=== PATIENT | female | born 1960 | race Caucasian/White ===

== ENCOUNTER 2016-10-30 17:49 | Emergency (ER) | payer OTHER ==
[~2016-10-30] VITALS: Ht 157.5 cm; Wt 65.0 kg
[2016-10-30 17:52] VITALS: Ht 157.5 cm; Wt 65.0 kg
[2016-10-30] MEDS ORDERED: KETOROLAC 30 MG INJ IM STA (18:52)
--- NOTE | 2016-10-30 19:14 | ERD ---
ER Documentation Chief Complaint Date/Time DATE: 10/30/16 TIME: 19:08 Chief Complaint LEFT SHOULDER PAIN X 1 WEEK HPI 56-year-old female presents to the emergency department complaining of gradually worsening severe left shoulder pain which began 1 week ago. Patient states that she was controlling the pain adequately with Tylenol until yesterday when it worsened to a sharp 10 out of 10. Patient states that her family member offered her meloxicam and after administering that medication, patient states her symptoms significantly improved. 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 Patient is left-hand dominant. Patient denies any medical history including diabetes, kidney disease, or high blood pressure. Patient denies any fever, chills, redness, or swelling of the joint. Patient denies any recent illness peer ROS All systems reviewed and are negative except as per history of present illness. Medications Home Meds Active Scripts Meloxicam* (Mobic*) 15 Mg Tablet, 15 MG PO DAILY, #30 TAB Prov:WERO OROZCO PA-C 10/30/16 Prednisone* (Prednisone*) 20 Mg Tab, 40 MG PO DAILY for 4 Days, TAB Prov:WERO OROZCO PA-C 10/30/16 PMhx/Soc Medical and Surgical Hx: pt denies Medical Hx, pt denies Surgical Hx Hx Alcohol Use: No Hx Substance Use: No Hx Tobacco Use: No Smoking Status: Never smoker Physical Exam Vitals Vital Signs Date Time Temp Pulse Resp B/P Pulse Ox O2 Delivery O2 Flow Rate FiO2 10/30/16 17:52 98.1 89 20 140/78 99 Physical Exam Const: Well-developed, well-nourished, in mild distress Head: Atraumatic Eyes: Normal Conjunctiva ENT: Normal External Ears, Nose and Mouth. Neck: Full range of motion at cervical spine. No midline cervical spine tenderness to Resp: Clear to auscultation bilaterally Cardio: Regular rate and rhythm, no murmurs Abd: Soft, non tender, non distended. Normal bowel sounds Skin: No petechiae or rashes Back: No midline or flank tenderness Ext: No evidence of erythema, cellulitis or major swelling surrounding the left shoulder joint. Mild tenderness to palpation. limited active and passive range of motion at left shoulder joint due to pain. Patient guarding left upper extremity. Full active range of motion at elbow and wrist joint. Radial , median, ulnar nerve motor and sensory function intact for bilateral upper extremities. 2+ radial pulses equal bilateral. 2 point discrimination intact along radial and ulnar aspects of all 5 fingers of left upper extremity. No cyanosis, or edema Neur: Awake and alert Psych: Normal Mood and Affect Results 24 hrs Current Medications Medications (Trade) Dose Ordered Sig/Ludwig Route PRN Reason Start Time Stop Time Status Last Admin Dose Admin Ketorolac Tromethamine (Toradol) 30 mg ONCE STAT IM 10/30/16 18:52 10/30/16 18:54 DC 10/30/16 18:56 Procedures/MDM PROCEDURE: XR left Shoulder. CLINICAL INDICATION: Left shoulder pain TECHNIQUE: 2 views of the left shoulder are available for review. COMPARISON: None available FINDINGS: No definite acute fracture is seen on this two-view radiograph. Limited assessment for dislocation given the provided views but no definite dislocation is seen. The greater tuberosity is also not well assessed. There is a 4 mm rounded density along the proximal humeral shaft that may be in the extraarticular biceps tendon sheath. IMPRESSION: 1. No radiographic evidence of acute osseous abnormality though the lack of an external rotation radiographs limits assessment of the greater tuberosity. 2. 4 mm rounded density projecting over the margin of the proximal humeral shaft may represent calcium hydroxyapatite deposition or a body in the biceps tendon sheath. RPTAT: UU .Deshawn Dominguez MD, Date Time Electronically viewed and signed by .Deshawn Dominguez MD, on 10/30/2016 19: 58 .K/ CC: WERO OROZCO-Ade X-ray Shoulder 3V Interpreted by me: Bones: No fracture Joints: No dislocation Foreign body: None She received Toradol in the emergency department and reports improvement of pain symptoms. 56-year-old female presents to the emergency department complaining of gradually worsening shoulder pain 1 week. Patient denies any trauma or injury. Patient states that at home her pain was significantly improved with meloxicam. Patient denies any fever, chills, or recent illness. At this time I have low suspicion for acute fracture, dislocation, septic joint, or serious systemic illness. Patient will be supplied with anti-inflammatory medication and sling for comfort. Patient to follow-up with supervisory it specialist within 10 days if symptoms worsen or do not improve. Based on patient's history of present illness and physical examination the decision was made to discharge. The patient was re-evaluated after ED treatment and stabilizing measures, and symptoms have improved. There is no evidence of life threatening injuries or illnesses at this time. On re-examination, patient resting in no distress, stable vital signs, reports feeling better and safe for discharge with outpatient follow up with PMD in 1-2 days. Patient given return precautions. Departure Diagnosis: Primary Impression: Shoulder pain Laterality: left Chronicity: acute Qualified Code: M25.512 - Acute pain of left shoulder Additional Impression: Left shoulder strain Encounter type: initial encounter Qualified Code: S46.912A - Left shoulder strain, initial encounter WERO OROZCO PA-C Oct 30, 2016 19:14
[2016-10-30] MEDS ORDERED: PRED20TA PO (19:17)
[2016-10-30] MEDS ORDERED: MELO-110 PO (19:17)
--- NOTE | 2016-10-30 19:58 | RADRPT ---
PROCEDURE: XR left Shoulder. CLINICAL INDICATION: Left shoulder pain TECHNIQUE: 2 views of the left shoulder are available for review. COMPARISON: None available FINDINGS: No definite acute fracture is seen on this two-view radiograph. Limited assessment for dislocation given the provided views but no definite dislocation is seen. The greater tuberosity is also not well assessed. There is a 4 mm rounded density along the proxim al humeral shaft that may be in the extraarticular biceps tendon sheath. IMPRESSION: 1. No radiographic evidence of acute osseous abnormality though the lack of an external rotation ra diographs limits assessment of the greater tuberosity. 2. 4 mm rounded density projecting over the margin of the proximal humeral shaft may represent calc ium hydroxyapatite deposition or a body in the biceps tendon sheath. RPTAT: UU .Deshawn Dominguez MD, Date Time Electronically viewed and signed by .Deshawn Dominguez MD, on 10/30/2016 19:58 .K/
== END 2016-10-30 20:23 | disposition home or self-care (01) ==
LOC: FTE 17:49
DX: S46.912A Strain of unspecified muscle, fascia and tendon at shoulder and upper arm level, left arm, initial encounter (principal); X58.XXXA Exposure to other specified factors, initial encounter; Y92.89 Other specified places as the place of occurrence of the external cause
CPT/HCPCS: 73030; 96372; J1885; Z7502

== ENCOUNTER 2019-02-22 08:27 | Emergency (ER) | payer OTHER ==
[~2019-02-22] VITALS: Wt 63.6 kg
[~2019-02-22 08:27] MED LIST: AMOX1TAB9 PO; CETI10TA34 PO; FLUT9.9S NASAL; MELO15TA30 PO; PRED20TA PO
[2019-02-22 08:38] VITALS: BP 130/93; PULSE 85; RESP 20
[2019-02-22] MEDS ORDERED: POLY10DR19 BOTH EYES (09:03)
--- NOTE | 2019-02-22 09:38 | ERD ---
ER Documentation Chief Complaint Chief Complaint itchy eyes w burning x1 wk HPI 58-year-old female presents with complaint of bilateral itching and burning for the past week. In addition states been having some discharge from both eyes as well. Patient states that her eyes been red. Patient is tried [id number] antihistamine drops but has not helped. Denies any trauma to her eyes. Patient denies any vision problems, eye pain, fevers, chills. ROS All systems reviewed and are negative except as per history of present illness. Medications Home Meds Active Scripts Polymyxin B Sulfate-TMP* (Polymyxin B-TMP Eye Drops*) 10 Ml Drops, 1 DROP BOTH EYES QID for 7 Days, EA Prov:MEGHANA AMIN 02/22/19 Cetirizine Hcl* (Cetirizine Hcl*) 10 Mg Tab.chew, 10 MG PO DAILY, #30 TAB Prov:GRETA CONNORS PA-C 10/03/17 Fluticasone Propionate (Flonase Allergy Relief) 9.9 Ml [place].susp, 1 SPRAY NASAL BID for 14 Days, #1 BOTTLE TO EACH NOSTRIL Prov:GRETA CONNORS PA-C 10/03/17 Amoxicillin/Potassium Clav (Amox-Clav 500-125 mg Tablet) 500-125 mg Tab, 1 TAB PO BID for 10 Days, TAB Prov:GRETA CONNORS PA-C 10/03/17 Meloxicam* (Mobic*) 15 Mg Tablet, 15 MG PO DAILY, #30 TAB Prov:WERO OROZCO PA-C 10/30/16 Prednisone* (Prednisone*) 20 Mg Tab, 40 MG PO DAILY for 4 Days, TAB Prov:WERO OROZCO PA-C 10/30/16 Allergies Allergies: Coded Allergies: No Known Allergy (Unverified , 10/03/17) PMhx/Soc Medical and Surgical Hx: pt denies Medical Hx, pt denies Surgical Hx Hx Cardiac Disorders: Yes ("SOMETIMES HIGH BLOOD PRESSURE") Hx Alcohol Use: No Hx Substance Use: No Hx Tobacco Use: No Smoking Status: Never smoker FmHx Family History: No diabetes, No coronary disease, No other Physical Exam Vitals Vital Signs Date Temp Pulse Resp B/P (MAP) Pulse Ox O2 O2 Flow FiO2 Time Delivery Rate 02/22/19 98.0 85 20 130/93 100 08:38 (105) Physical Exam Const: No acute distress Head: Atraumatic Eyes: Sclerae injected bilaterally. There are no foreign bodies or signs of trauma noted. No discharge noted. EOMs intact. PERRLA. ENT: Normal External Ears, Nose and Mouth. Neck: Full range of motion. No meningismus. Resp: Clear to auscultation bilaterally Cardio: Regular rate and rhythm, no murmurs Abd: Soft, non tender, non distended. Normal bowel sounds Skin: No petechiae or rashes Back: No midline or flank tenderness Ext: No cyanosis, or edema Neur: Awake and alert Psych: Normal Mood and Affect Procedures/MDM MDM: Patient exam is within normal limits. Patient's presentations consistent with conjunctivitis. Patient was placed on Polytrim to treat possible bacterial etiology, however unlikely. Low suspicion bacterial conjunctivitis, corneal abrasion, corneal ulcer, retained eye foreign body, glaucoma, periorbital cellulitis, orbital cellulitis, hordeolum, dacrocystitis, globe rupture. At this time, patient is stable for discharge and outpatient management. I have instructed the patient to follow-up with his/her primary care physician in 1-2 days. I have discussed with the patient the possibility of needing to see a specialist for further workup and imaging studies if symptoms persist. I have instructed the patient to promptly return to the ER for any new or worsening symptoms including but not limited to increased pain, fever, nausea, vomiting, weakness or LOC. The patient and/or family expressed understanding of and agreement with this plan. All questions were answered. Home care instructions were provided. Conjunctivitis, most likely viral DISCLAIMER: Inadvertent spelling and grammatical errors are likely due to EHR/dictation software use and do not reflect on the overall quality of patient care. Also, please note that the electronic time recorded on this note does not necessarily reflect the actual time of the patient encounter. Departure Diagnosis: Primary Impression: Conjunctivitis Condition: Stable Patient Instructions: Conjunctivitis Caused by Infection Referrals: COMMUNITY CLINICS YOU HAVE RECEIVED A MEDICAL SCREENING EXAM AND THE RESULTS INDICATE THAT YOU DO NOT HAVE A CONDITION THAT REQUIRES URGENT TREATMENT IN THE EMERGENCY DEPARTMENT. FURTHER EVALUATION AND TREATMENT OF YOUR CONDITION CAN WAIT UNTIL YOU ARE SEEN IN YOUR DOCTORS OFFICE WITHIN THE NEXT 1-2 DAYS. IT IS YOUR RESPONSIBILITY TO MAKE AN APPOINTMENT FOR FOLOW-UP CARE. IF YOU HAVE A PRIMARY DOCTOR --you should call your primary doctor and schedule an appointment IF YOU DO NOT HAVE A PRIMARY DOCTOR YOU CAN CALL OUR PHYSICIAN REFERRAL HOTLINE AT IF YOU CAN NOT AFFORD TO SEE A PHYSICIAN YOU CAN CHOSE FROM THE FOLLOWING [facility] [address] [facility] [address] [facility] [facility] [address] [facility] [address] [facility]. [place] [address] [facility]. [facility] [address] Additional Instructions: FOLLOW UP WITH YOUR PRIMARY CARE PHYSICIAN TOMORROW.Return to this facility if you are not improving as expected. MEGHANA AMIN Feb 22, 2019 09:38
== END 2019-02-22 09:33 | disposition home or self-care (01) ==
LOC: FTE 08:27
DX: H10.9 Unspecified conjunctivitis (principal)
CPT/HCPCS: 99283

== ENCOUNTER 2019-02-27 21:06 | Emergency (ER) | payer OTHER ==
[~2019-02-27] VITALS: Ht 162.6 cm; Wt 59.7 kg
[~2019-02-27 21:06] MED LIST changes: +POLY10DR19 BOTH EYES
[2019-02-27 21:22] VITALS: BP 159/70; PULSE 84; RESP 18; Ht 162.6 cm; Wt 59.7 kg
[2019-02-27] MEDS ORDERED: KETO5DRO71 OP (22:51)
--- NOTE | 2019-03-01 01:47 | ERD ---
ER Documentation Chief Complaint Chief Complaint bilateral eye redness/itch x 4 days HPI 58-year-old female presents to the emergency department complaining of bilateral eye itching and burning for the past 4 days. Patient was seen here approximately 2 days ago and was prescribed Polytrim for possible bacterial con junctivitis. She is been compliant with the medication but has noticed no improvement of her symptoms. She denies any foreign body sensation or possibility of foreign body in her eyes. She does not wear contacts or glasses. She denies any visual changes, diplopia, severe eye pain, or other symptoms at this time. Symptoms are currently mild in severity. ROS All systems reviewed and are negative except as per history of present illness. Medications Home Meds Active Scripts Ketotifen Fumarate (ZADITOR) 5 Ml Drops, 5 ML OP BID, #1 BOTTLE Prov:MEGHANA ZHOU PA-C 02/27/19 Polymyxin B Sulfate-TMP* (Polymyxin B-TMP Eye Drops*) 10 Ml Drops, 1 DROP BOTH EYES QID for 7 Days, EA Prov:MEGHANA AMIN 02/22/19 Cetirizine Hcl* (Cetirizine Hcl*) 10 Mg Tab.chew, 10 MG PO DAILY, #30 TAB Prov:GRETA CONNORS PA-C 10/03/17 Fluticasone Propionate (Flonase Allergy Relief) 9.9 Ml [place].susp, 1 SPRAY NASAL BID for 14 Days, #1 BOTTLE TO EACH NOSTRIL Prov:GRETA CONNORS PA-C 10/03/17 Amoxicillin/Potassium Clav (Amox-Clav 500-125 mg Tablet) 500-125 mg Tab, 1 TAB PO BID for 10 Days, TAB Prov:GRETA CONNORS PA-C 10/03/17 Meloxicam* (Mobic*) 15 Mg Tablet, 15 MG PO DAILY, #30 TAB Prov:WERO OROZCO PA-C 10/30/16 Prednisone* (Prednisone*) 20 Mg Tab, 40 MG PO DAILY for 4 Days, TAB Prov:WERO OROZCO PA-C 10/30/16 Allergies Allergies: Coded Allergies: No Known Allergy (Unverified , 10/03/17) PMhx/Soc Medical and Surgical Hx: pt denies Surgical Hx Hx Cardiac Disorders: Yes ("SOMETIMES HIGH BLOOD PRESSURE") Hx Alcohol Use: No Hx Substance Use: No Hx Tobacco Use: No Smoking Status: Never smoker FmHx Family History: No diabetes Physical Exam Vitals Vital Signs Date Temp Pulse Resp B/P (MAP) Pulse Ox O2 O2 Flow FiO2 Time Delivery Rate 02/27/19 97.3 84 18 159/70 99 21:22 (99) Physical Exam Const: No acute distress Head: Atraumatic Eyes: Bilateral conjunctival injection. No obvious foreign body. No obvious visual acuity deficits. No periorbital edema or erythema or crepitus on palpation. ENT: Normal External Ears, Nose and Mouth. Neck: Full range of motion. No meningismus. Resp: Clear to auscultation bilaterally Cardio: Regular rate and rhythm, no murmurs Skin: No petechiae or rashes Back: No midline or flank tenderness Ext: No cyanosis, or edema Neur: Awake and alert Psych: Normal Mood and Affect Procedures/MDM 58-year-old female presented to the emergency department with signs and symptoms most consistent with conjunctivitis, probable allergic etiology. Ophthalmologic Assessment: Patient's ocular symptoms have stabilized while they have been evaluated in the department and are appropriate for outpatient work up. No evidence of ruptured globe, retinal detachment, acute angle closure glaucoma, or deep space infection. Plan for 24 hour ophthalmologic follow up. Departure Diagnosis: Primary Impression: Conjunctivitis Condition: Fair Patient Instructions: Conjunctivitis Caused by Irritation Referrals: COMMUNITY CLINICS YOU HAVE RECEIVED A MEDICAL SCREENING EXAM AND THE RESULTS INDICATE THAT YOU DO NOT HAVE A CONDITION THAT REQUIRES URGENT TREATMENT IN THE EMERGENCY DEPARTMENT. FURTHER EVALUATION AND TREATMENT OF YOUR CONDITION CAN WAIT UNTIL YOU ARE SEEN IN YOUR DOCTORS OFFICE WITHIN THE NEXT 1-2 DAYS. IT IS YOUR RESPONSIBILITY TO MAKE AN APPOINTMENT FOR FOL-UP CARE. IF YOU HAVE A PRIMARY DOCTOR --you should call your primary doctor and schedule an appointment IF YOU DO NOT HAVE A PRIMARY DOCTOR YOU CAN CALL OUR PHYSICIAN REFERRAL HOTLINE AT IF YOU CAN NOT AFFORD TO SEE A PHYSICIAN YOU CAN CHOSE FROM THE FOLLOWING [facility] [address] [facility] [address] [facility]. [facility] [address] [facility] [address] [facility]. [facility] [address] [facility] [facility]. [address] [facility]. [facility] Hours: Mon - Fri 9:00 AM - 5:00 PM Additional Instructions: SPECIALIST: YOU HAVE A MEDICAL CONDITION WHICH REQUIRES YOU TO SEE A SPECIALIST WITHIN THE NEXT 1-2 DAYS. PLEASE FOLLOW UP WITH YOUR PRIMARY PHYSICIAN FOR REFFERAL.IF YOU DO NOT HAVE A PRIMARY CARE PHYSICIAN AND/OR YOU CAN NOT AFFORD TO SEE A PHYSICIAN THE FOLLOWING RESOURCES HAVE BEEN SUPPLIED TO YOU. IT IS YOUR RESPONSIBILITY TO BE SEEN BY THE SPECIALIST: OPTHALMOLOGY MEGHANA ZHOU PA-C Mar 01, 2019 01:47
== END 2019-02-27 23:47 | disposition home or self-care (01) ==
LOC: FTE 21:06
DX: H10.9 Unspecified conjunctivitis (principal)
CPT/HCPCS: 99282